=== PATIENT | female | born 1970 | race Caucasian/White ===

== ENCOUNTER → 2017-03-19 | Outpatient (CLI) | payer OTHER ==
--- NOTE | 2017-03-20 06:08 | PAP/PSG TECHNICIAN REPORT ---
[facility] Business Area Director Polysomnogram Report Study name: None Report date: 03/20/2017 Study date: 03/19/2017 Referring Physician: Leroy Bernal PA-C Name: REENA LEPE Interpreting Physician: Fidel Orosco D.O. Date of : 1970 Business Area Director: Nirmala Briscoe [facility]. Sex: Female Age: 46 StudyType: PSG Weight: 162 lbs Height: 46 years, Height 5' 6" BMI: 26.14 Medications: Ventolin 108 ( 90 Base) Patient History 46 yr. old female here for a diagnostic sleep study. Patients states she is now a light sleeper when she was younger she would sleep very sound. She also has bruxism, and even chipped a tooth during the night. She now wears a mouth piece. Patients [place] Sleepiness Scale Score is 5/24. Parameters Monitored NPSG: E1-M2, E2-M1, Fp1-M2, Fp2-M1, F3-M2, F4-M2, F4-M1, C3-M2, C4-M2, C4-M1, O1-M2, O2-M2, O2-M1, T3-M2, T4-M1, P3-M2, P4-M1, CHIN1, CHIN2, HR, EKG, Legs, PFLOW, SNOR, FLOW, CFLOW, Tidal Volume, THOR, ABDO, SpO2, PLTH, CPRESS, ETCO2 Wave, ETCO2, pH Sleep Architecture Sleep Stages Time at Lights Off 9:21:37 PM STAGES Time (min.) TST (%) Time at Lights On 6:00:07 AM Wake 72.5 -- Total Recording Time (TRT) 518.00 min. N1 23.0 5 Total Sleep Period (TSP) 507.5 min. N2 225.0 51 Total Sleep Time (TST) 445.5min. N3 64.5 14 Awake Time 72.5 min. REM 133.0 30 Wake after Sleep Onset 62.5 min. Sleep Efficiency (SE) 86 % Sleep Onset Latency (SULEMAN) 10.5 min. Number of Stage 1 Shifts None Awakenings 25 Stage Changes 91 Number of REM periods 6 REM 133.0 30 REM Latency 64.5 min. NREM 312.5 70 Body Position Analysis Supine Right Left Side Prone Vertical Total Sleep Time (min.) 230.6 82.3 139.3 221.58 0.0 0.4 Total Sleep Time (%) 50% 18% 31% 50 0% N/A% Total Sleep Time REM (min.) 99.5 0.0 33.5 None 0.0 0.0 Total Sleep Time NREM (min.) 124.4 82.3 105.8 None 0.0 0.0 Intermittent Wake (min.) 6.7 63.0 2.5 None 0.0 0.4 Total Sleep Period (%) 45% None None None None None Arousals Myoclonus (PLM) * Events Count Index Events Count Index Spontaneous 15 2 Events Awake (PLMW) 53 43.9 Respiratory 0 0.0 Events Asleep w/ Arousal (PLMA) 21 2.8 PLM 20 3 Events Asleep w/o Arousal (PLMS) 54 7.3 Snoring 7 1 Total Asleep 75 10.1 Total 42 6 Total 128 15 Respiratory Analysis * CA OA MA CH H RERA Total Count 1 0 0 0 0 0 1 Index 0.1 0.0 0.0 0 0.0 0 0.1 Mean Duration 11.2 0.0 0.0 0.00 0.0 0.0 11.2 Longest Duration 11.2 0.0 0.0 0.00 0.0 0.0 11.2 Respiratory Event Summary Total Supine ~Supine Right Left Prone REM NREM Apneas Count 1 1 0 0 0 N/A 1 0 Index 0.1 0 0 0.0 0.0 N/A 0 0 Hypopneas (4% Desat) Count 0 0 0 0 0 N/A 0 0 Index 0.0 0.0 0 0.0 0.0 N/A 0.0 0.0 Apneas & All Hypopneas Count 1 1 0 0 0 N/A 1 0 Index 0.1 0 0 0 0 N/A 0.5 0.0 Respiratory Events (Mental Health Program Specialist+All Hyp+RERA) Count 1 1 0 0 0 N/A 1 0 Index 0.1 0 0 0.0 0.0 N/A 0.5 0.0 Respiratory Related Arousal Count 0 1 0 0 0 N/A 0 0 Index 0.0 0 0 0 0 N/A 0 0 Snoring Analysis Supine Right Left Prone REM NREM Total Snore duration 1.6 min Snores count 7 11 36 N/A 25 29 54 Snore mean duration 1.8 Sec Snores index 2 8 16 N/A 11.3 5.6 7.3 TST with snoring (%) 0.4% Desaturation Event Summary: Minimum %SpO2 Event Count Mean/Min/Max Duration(sec.) Desaturation Index % Time In Bed > 90 8 28.2 / 8.3 / 58.8 0.9 99.9 86 - 90 0 N/A 0.0 0.0 81 - 85 0 N/A 0.0 0.0 76 - 80 0 N/A 0.0 0.0 71 - 75 0 N/A 0.0 0.0 66 - 70 0 N/A 0.0 0.0 61 - 65 0 N/A 0.0 0.0 56 - 60 0 N/A 0.0 0.0 51 - 55 0 N/A 0.0 0.0 < 50 0 N/A 0.0 0.0 Total REM NREM Awake <50% 0.0 min. 0.0 min. 0.0 min. 0.0 min. 51 - 60% 0.0 min. 0.0 min. 0.0 min. 0.0 min. 61 - 70% 0.0 min. 0.0 min. 0.0 min. 0.0 min. 71 - 80% 0.3 min. 0.0 min. 0.0 min. 0.3 min. 81 - 90% 0.0 min. 0.0 min. 0.0 min. 0.0 min. 91 - 100% 510.6 min. 133.0 min. 312.5 min. 65.1 min. Average 95 95 95 95 Minimum SpO2 74 91 91 74 Desaturation Event Index 0.9 0.5 0.6 3.3 # Desat. Events below 89% 1 N/A N/A 1 Time(%) with Saturation below 89% 0.1 0.0 0.0 0.1 Time(min.) with Saturation below 89% 0.3 0.0 0.0 0.3 Time (mins) REM (mins) NREM (mins) % of TST SpO2 Below 90% N/A N/A NN/A 0.0 SpO2 Below 88% 0 0 0 0 Heart Rate Analysis Min (bpm) Max (bpm) Average (bpm) Awake 62 110 76 NREM 63 95 77 REM 68 101 84 Overall 63 101 79 Supplemental O2 Values Minimum O2 level: None Value Start Time End Time Business Area Director Comments MS. Lepe slept in the right, left, and supine positions. No cardiac arrhythmia. PLMs noted. No bruxism noted. Snoring was noted and scored as a 1 on a scale of 0 through 5. (0=no snoring, 5=snoring loud enough to be heard through a closed door or down the cote way) MS. Lepe awoke to use the restroom once during the night. MS. Lepe stated, that was a normal night. The final report will be interpreted and signed by a sleep physician. The completed physician report will then be placed in the patient medical record. Therapy (cm H2O) 0 TIB (min.) 518.0 TST (min.) 445.5 Sleep Onset (min.) 10.5 REM Onset From Sleep (min.) 64.5 Sleep Efficiency % 86 Wakefulness (%) 14 Wakefulness (min.) 72.5 NREM 1 (%) 5 NREM 1 (min.) 23.0 NREM 2 (%) 51 NREM 2 (min.) 225.0 NREM 3 (%) 14 NREM 3 (min.) 64.5 REM (%) 30 REM (min.) 133.0 # Arousals 42 Arousal Index 6 # Snore 54 Snore Index 7.3 AHI 0.1 AHI Supine 0 AHI Non-Supine 0 NREM AHI 0.0 REM AHI 0.5 RDI 0.1 # Obstructive Apnea 0 # Central Apnea 1 # Mixed Apnea 0 # Hypopneas 0 RERAs 0 Total Respiratory Events 2 Time Below SpO2 89% (min.) 0.0 Mean NREM SpO2 (%) 95 Mean REM SpO2 (%) 95 Mean Sleep SpO2 (%) 95 Min NREM SpO2 (%) 91 Min REM SpO2 (%) 91 Position Supine (min.) 230.6 Position Non-supine (min.) 221.6 LM Index Sleep 10.1 LM Index NREM 9.4 LM Index REM 11.7 Mean Heart Rate (bpm) 79 Min Heart Rate (bpm) 63
--- NOTE | 2017-03-22 08:26 | Sleep Study ---
Sleep Study Report Date of Service: 03/19/2017 Sleep Study Report Clinical data: The patient is a 46-year-old female who was referred for a diagnostic sleep study. She has a history of bruxism. She has had disturbed nocturnal sleep. She has a history of excessive daytime somnolence. Her [place] score was 5 out of a possible 24. The patient's BMI is 26.14. Sleep architecture: The total sleep period was 507.5 minutes. The total sleep time was 445.5 minutes. Sleep efficiency was mildly reduced at 86 percent. The sleep latency was normal at 10.5 minutes. Wake after sleep onset was mildly elevated at 62.5 minutes. The REM latency was 64.5 minutes which is normal. There were 5 REM periods. Sleep consisted of stage N1 5 percent, stage N2 51 percent, stage N3 14 percent, and stage REM 30 percent. Arousal data: The patient had a total of 42 arousals including 15 spontaneous arousals, 20 PLM arousals, and 7 snoring arousals. The arousal index was 6. PLM data: The patient had 75 periodic limb movements of sleep for an index of 10.1. There were 21 arousals related to leg movements for a PLM arousal index of 2.8. EKG: The underlying cardiac rhythm was normal sinus. The cardiac rates ranged from 63 to 101 beats per minute. The average heart rate was 79 beats per minute. Respiratory data: The patient had a total of only 1 respiratory event, a central apnea. The apnea was 11.2 seconds in length. The apnea-hypopnea index was normal at 0.1 events per hour. Oximetry data: The average saturation for the night was 95 percent. There was a recorded saturation as low as 74 percent but this was clearly technical. The true minimum saturation was 90 percent. Pediatric Dental Assistant comments: The patient slept on the right, left, and supine positions. No cardiac arrhythmia. PLMS noted. No bruxism noted. Snoring was noted and scored as a 1 on a scale of 0 through 5. Impressions: 1. No evidence of obstructive sleep apnea 2. Bruxism by history-none noted during this study 3. Disturbed nocturnal sleep and excessive daytime somnolence by history 4. Mild snoring Comments: The patient had overall a good night sleep. Her sleep efficiency was only mildly reduced. This was related to an episode of wake later in the night. Her sleep was quite well consolidated. She had a substantial amount of REM sleep. There were relatively few arousals. Oxygenation was normal. There was a relatively mild number of periodic limb movements that did not significantly disturbs her sleep. Recommendations: 1. The patient should follow up with Leroy Bernal PA-C who referred the patient. 2. The patient should be advised the appropriate principles of sleep hygiene including having a regular sleep-wake schedule and allowing approximately 7.5-8 hours of sleep time per night. Copies To 1: Fidel Orosco DO; Jay Jay Fierro M.D.; Leroy Bernal PA-C
== END | disposition home or self-care (01) ==
LOC: C.NEUR 21:00
PROVIDERS: ATTEND Physician Assistant
DX: G47.19 Other hypersomnia (principal)

== ENCOUNTER 2017-08-07 09:05 | Observation (INO) | payer OTHER ==
[~2017-08-07] VITALS: Ht 167.6 cm; Wt 76.8 kg
[2017-08-07] MEDS ORDERED: VNTHFA/IN INH (09:43)
[2017-08-07] MEDS ORDERED: ALUMINUM/MAGNESIUM SUSP 30 ML UDC PO STA (09:47)
[2017-08-07] MEDS ORDERED: ALBUT/IPRATROP 3MG/0.5MG NEB 3 ML VIAL INH STA ×4 (09:47→15:17)
--- NOTE | 2017-08-07 09:58 | EMERGENCY ROOM VISIT NOTE ---
History Report prepared by Ingrid: Corinne Chan Under the Supervision of: Dr. Jelly Torres D.O. First contact with patient: 09:27 Chief Complaint: SHORTNESS OF BREATH Stated Complaint: TROUBLE BREATHING Nursing Triage Summary: Shortness of breath since the Jul. Seen at two different ERs and at PCPs office. Dx with laryngitis, given treatments but no improvement. History of Present Illness The patient is a 47 year old female who presents to the Emergency Room with complaints of constant shortness of breath beginning about 15 days ago. The patient went to [place] [facility] on July 23 for shortness of breath and was given a breathing treatment and sent home with 5 day steroid treatment. The patient followed up with her PCP on August 01 and was sent to [place] [facility] to have lab work, a CT and an x-ray done. From there, she was diagnosed with laryngitis and was sent home with a nebulizer and azithromycin. The patient then went to [facility] on August 03 and was sent home with another steroid. She reports a pressure on her central chest, an intermittent productive cough, right ear pressure, and a dry nose. Her chest pressure does not radiate or move. She reports the nebulizer and her Ventolin inhaler have not given her any relief. She states eating makes her chest pressure worse. The patient denies any history of reflux. She denies being on a steroid based inhaler. The patient has a history of asthma. The patient was never a smoker. Pt denies headache, change in vision, fevers, nausea, vomiting, diarrhea, pain with urination, swelling in legs, rashes, or sore throat, and melena. Source of History: patient Onset: 15 days ago Position: other (generalized) Quality: other (shortness of breath) Timing: constant Modifying Factors (Worsening): eating Associated Symptoms: + cough, + chest pain (pressure), + SOB, No sorethroat Review of Systems See HPI for pertinent positives & negatives. A total of 10 systems reviewed and were otherwise negative. Family History Patient reports no known family medical history. Social History Smoking Status: Never Smoker Smokeless Tobacco Use: No Marital Status: Housing Status: lives with family Current/Historical Medications Scheduled Albuterol Hfa (Ventolin Hfa), 2-4 PUFFS INH Q6H Allergies Coded Allergies: Bupropion (Unverified Allergy, Severe, FULL BODY RASH, 08/07/17) [place] (Unverified Allergy, Severe, SHORTNESS OF BREATH,SWELLING IN THROAT, 08/07/17) Penicillin V (Unverified Allergy, Severe, FULL BODY RASH, 08/07/17) Physical Exam Vital Signs Date Time Temp Pulse Resp B/P (MAP) Pulse Ox O2 Delivery O2 Flow Rate FiO2 08/07/17 16:27 130 20 122/81 93 Room Air 08/07/17 15:04 117 20 138/79 95 Room Air 08/07/17 13:11 125 18 139/81 94 Room Air 08/07/17 12:37 141 22 98 08/07/17 11:12 109 20 100 Room Air 08/07/17 10:11 88 18 96 Room Air 08/07/17 09:22 97 Room Air 08/07/17 09:11 97 Room Air 08/07/17 09:11 37.1 85 20 137/93 97 Room Air Physical Exam GENERAL: alert, well appearing, well nourished, no distress, non-toxic EYE EXAM: normal conjunctiva, PERRL and EOM's grossly intact OROPHARYNX: no exudate, no erythema, lips, buccal mucosa, and tongue normal and mucous membranes are moist NECK: supple, no nuchal rigidity, no adenopathy, non-tender LUNGS: Clear to auscultation. Normal chest wall mechanics HEART: no murmurs, S1 normal and S2 normal ABDOMEN: abdomen soft, non-tender, normo-active bowel sounds, no masses, no rebound or guarding. BACK: Back is symmetrical on inspection and there is no deformity, no midline tenderness, no CVA tenderness. SKIN: no rashes and no bruising UPPER EXTREMITIES: upper extremities are grossly normal. LOWER EXTREMITIES: No pitting edema. NEURO EXAM: Normal sensorium, cranial nerves II-XII grossly intact, normal speech, no gross weakness of arms, no gross weakness of legs. Medical Decision & Procedures ER Provider Diagnostic Interpretation: Radiology results have been interpreted by the radiologist and reviewed by me. CHEST ONE VIEW PORTABLE FINDINGS: The bones soft tissues and hemidiaphragms are normal. The cardiomediastinal silhouette is normal. The lungs are clear. The pulmonary vasculature is normal. IMPRESSION: Negative chest. The above report was generated using voice recognition software. It may contain grammatical, syntax or spelling errors. Electronically signed by: Jose Manuel Albert M.D. Laboratory Results Test 08/07/17 13:10 08/07/17 13:13 08/07/17 13:17 Bedside Troponin I < 0.030 ng/ml (0-0.045) Bedside Hemoglobin 13.9 g/dl (12.0-16.0) Bedside Hematocrit 41 % (37-47) Bedside Sodium 140 mEq/L (135-144) Bedside Potassium 3.1 mEq/L (3.3-5.0) Bedside Chloride 104 mEq/L (101-112) Bedside Total CO2 23 mEq/l (24-31) Bedside Blood Urea Nitrogen 5 mg/dl (7-18) Bedside Creatinine 0.7 mg/dl (0.6-1.3) Bedside Glucose (other) 129 mg/dl (70-99) Bedside Ionized Calcium (José Miguel) 1.14 mmol/l (1.12-1.32) Influenza Type A Antigen Neg for Influ A (NEG) Influenza Type B Antigen Neg for Influ B (NEG) Medications Administered Medications (Trade) Dose Ordered Sig/Gwen Route Start Time Stop Time Status Last Admin Dose Admin Albuterol/ Ipratropium (Duoneb) 3 ml NOW STAT INH 08/07/17 09:47 08/07/17 09:48 DC 08/07/17 09:56 3 ML Al Hydroxide/Mg Hydroxide (Maalox Susp) 15 ml NOW STAT PO 08/07/17 09:47 08/07/17 09:48 DC 08/07/17 09:56 15 ML Albuterol/ Ipratropium (Duoneb) 3 ml NOW STAT INH 08/07/17 10:51 08/07/17 10:52 DC 08/07/17 11:00 3 ML Guaifenesin (Mucinex Contr Rel Tab) 600 mg NOW STAT PO 08/07/17 10:51 08/07/17 10:52 DC 08/07/17 11:11 600 MG Dexamethasone (Decadron Conc Soln) 10 mg NOW STAT PO 08/07/17 10:57 08/07/17 10:58 DC 08/07/17 11:11 10 MG Albuterol/ Ipratropium (Duoneb) 3 ml NOW STAT INH 08/07/17 11:42 08/07/17 11:43 DC 08/07/17 11:47 3 ML Methylprednisolone Sodium Succinate (Solu-Medrol IV) 60 mg NOW STAT IV 08/07/17 15:16 08/07/17 15:18 DC 08/07/17 15:48 60 MG Albuterol/ Ipratropium (Duoneb) 3 ml NOW STAT INH 08/07/17 15:17 08/07/17 15:18 DC 08/07/17 15:49 3 ML Magnesium Sulfate (Magnesium Sulfate) 2 gm NOW STAT IV 08/07/17 15:34 08/07/17 15:35 DC 08/07/17 15:49 2 GM ECG Indication: SOB/dyspnea Rate (beats per minute): 101 Rhythm: sinus tachycardia Findings: no acute ischemic change, no ectopy, other (normal axis, normal intervals) ED Course 09: The patient was evaluated in room B11B. A complete history and physical exam was performed. 0947: Ordered Maalox Susp 15 ml PO, Duoneb 3 ml INH. 1010: Reviewed recent records from [facility]. Pt with negative labs including trop, CT angio chest negative for acute pathology and CT soft tissue neck negative for acute pathology. 1035: The patient's chest pressure is better but not gone. 1051: Ordered Guaifenesin 600 mg PO, Duoneb 3 ml INH. 1057: Ordered Dexamethasone 10 mg PO. 1136: The patient is feeling better with the second nebulizer treatment. 1142: Ordered Duoneb 3 ml INH. 1223: The patient feels much better. Will have the patient do an ambulatory pulse ox. Patient feels jittery from nebulizer. Her stats are fine but she is still a little tachycardic. 1258 The patient felt "funny" during ambulatory pulse ox. However, her stats did not drop. 1400: The patient is now eating and resting comfortably. 1437: The patient's symptoms have returned. 1517: I reviewed the patient's case with [place]. Azam [facility] will evaluate the patient for further management. 1534: Ordered Magnesium Sulfate 2 gm IV. Medical Decision Differential diagnosis: Etiologies such as infections, reactive airway disease, pneumonia, pneumothorax , COPD, CHF, cardiac ischemia, pulmonary embolism, musculoskeletal, gastrointestinal, as well as others were entertained. Pt well appearing here despite complaints. Records obtained from outside hospital which showed thorough evaluation within the last 6 days including labs and imaging. Discussed with pt initially treating sx for likely asthma exacerbation and avoiding repeating labs/imaging. She was agreeable with slowly with nebs and meds pt felt slightly improved. Not hypoxic during ambulation but had increased SOB and chest tightness returned. Sx did not jim with additional meds. Labs and imaging then ordered and still reassuring. Discussed with pt again, pt very concerned about persistence of sx despite negative evaluation and meds. Discussed dc home with close f/u vs evaluation by medicine for possible admission/observation and additional treatment. Pt stated she felt uncomfortable going home with these symptoms, requested admission. Case discussed with medicine. I feel sx most likely related to asthma. Doubt PE given recent negative CTA chest, doubt trop given two negative troponins within the last week despite ongoing sx. Doubt pneumonia given pt just finished azithromycin yesterday. Doubt bacteremia/ sepsis, doubt tamponade, perf, dissection, aneurysm, other vascular etiology, no hx of trauma. Medication Reconcilliation Current Medication List: was personally reviewed by me Blood Pressure Screening Patient's blood pressure: Elevated blood pressure Blood pressure disposition: Elevated BP felt to be situational Consults Time Called: 1512 Consulting Physician: Dr. Azam Arredondo Returned Call: [phone] I reviewed the patient's case with Dr. Azam Arredondo. He will evaluate the patient for further management. Impression Primary Impression: Bronchospasm Additional Impressions: Asthma exacerbation Chest pressure Scribe Attestation The scribe's documentation has been prepared under my direction and personally reviewed by me in its entirety. I confirm that the note above accurately reflects all work, treatment, procedures, and medical decision making performed by me. Departure Information Dispostion Being Evaluated By Hospitalist Referrals Jay Jay Fierro M.D. (PCP) Forms HOME CARE DOCUMENTATION FORM, IMPORTANT VISIT INFORMATION Patient Instructions My [facility] Problem Qualifiers Additional Impressions: Asthma exacerbation Asthma severity: mild Asthma persistence: unspecified Qualified Codes: J45.901 - Unspecified asthma with (acute) exacerbation
[2017-08-07] MEDS ORDERED: GUAIFENESIN 600 MG TABCR PO STA (10:51)
[2017-08-07] MEDS ORDERED: DEXAMETHASONE CONC 1 MG/ML 30 ML PO STA ×2 (10:51→10:57)
[2017-08-07 13:27] LABS: ISTAT CREATININE 0.7 mg/dl (0.6-1.3); ISTAT IONIZED CALCIUM 1.14 mmol/l (1.12-1.32); ISTAT POTASSIUM 3.1 mEq/L (3.3-5.0)
[2017-08-07 14:42] LABS: INFLUENZA B ANTIGEN Neg for Influ B (NEG)
--- NOTE | 2017-08-07 15:15 | DIAGNOSTIC IMAGING REPORT ---
CHEST ONE VIEW PORTABLE CLINICAL HISTORY: chest pressure, sob dyspnea COMPARISON STUDY: No previous studies for comparison. FINDINGS: The bones soft tissues and hemidiaphragms are normal. The cardiomediastinal silhouette is normal. The lungs are clear. The pulmonary vasculature is normal. IMPRESSION: Negative chest. The above report was generated using voice recognition software. It may contain grammatical, syntax or spelling errors. Electronically signed by: Jose Manuel Albert M.D. 08/07/2017 3:13 PM Dictated Date/Time: 08/07/2017 3:13 PM
[2017-08-07] MEDS ORDERED: METHYLPREDNISOLONE 125 MG VIAL IV STA (15:16)
[2017-08-07] MEDS ORDERED: MAGNESIUM SULFATE 1GM / D5W 1 GM BAG IV STA (15:34)
[2017-08-07] MEDS ORDERED: ACETAMINOPHEN 325 MG TAB PO PRN (16:30)
[2017-08-07] MEDS ORDERED: ONDANSETRON INJ 2 MG/ML 2 ML VIAL IV PRN (16:30)
[2017-08-07] MEDS ORDERED: ALUMINUM/MAGNESIUM/SIMETH (MAALOX MAX) 30 ML UDC PO PRN (16:30)
[2017-08-07] MEDS ORDERED: POLYETHYLENE (MIRALAX) 17 GM PACK PO PRN (16:30)
--- NOTE | 2017-08-07 16:53 | History and Physical ---
History & Physical Date & Time of Service: Aug 07, 2017 at 16:36 Chief Complaint: Trouble Breathing Primary Care Physician: No Doctor, Assigned History of Present Illness Source: patient, clinic records, hospital records Patient is a pleasant 47 y/o female, with PMHx of asthma and insomnia, who presented to the ED with complaints of SOB and chest tightness x1 month. Patient was seen at [place] [facility] on 07/23 for SOB- she was treated with nebulizers and discharged home on a Prednisone taper. She follow-up w/ PCP on and was sent to [facility] ED for lab work, x-ray, and CT- she was diagnosed with laryngitis and discharged to home with nebulizer and Azithromycin. She then went to [facility] on 08/03 for continued complaints and was discharged to home on another Prednisone taper. She notes her chest pressure seems to worsen with eating. Denies any radiating symptoms. Denies h/o acid reflux. She follows w/ Leroy Bernal for pulmonary. She had a sleep study in March 2017 and PFTs in December of 2016, which were unremarkable. She admits to a periodic cough w/ clear/white sputum production and at times is blood tinged. She also notes nasal congestion. Patient denies any fever, chills , sweats, lightheadedness, dizziness, vision changes, CP, palpitations, edema, wheezing, abdominal pain, nausea, vomiting, diarrhea, urinary symptoms, melena, numbness/tingling, weakness, muscle/joint pain, anxiety/depression, active bleeding, or new skin discoloration/changes. Past Medical/Surgical History Past Medical History: Asthma Insomnia Family History Patient reports no known family medical history. Social History Smoking Status: Never Smoker Smokeless Tobacco Use: No Marital Status: Housing status: lives alone Allergies Coded Allergies: Bupropion (Unverified Allergy, Severe, FULL BODY RASH, 08/07/17) Flint (Unverified Allergy, Severe, SHORTNESS OF BREATH,SWELLING IN THROAT, 08/07/17) Penicillin V (Unverified Allergy, Severe, FULL BODY RASH, 08/07/17) Home Medications Scheduled Albuterol Hfa (Ventolin Hfa), 2-4 PUFFS INH Q6H Physical Exam Vital Signs Date Time Temp Pulse Resp B/P (MAP) Pulse Ox O2 Delivery O2 Flow Rate FiO2 08/07/17 16:27 130 20 122/81 93 Room Air 08/07/17 15:04 117 20 138/79 95 Room Air 08/07/17 13:11 125 18 139/81 94 Room Air 08/07/17 12:37 141 22 98 08/07/17 11:12 109 20 100 Room Air 08/07/17 10:11 88 18 96 Room Air 08/07/17 09:22 97 Room Air 08/07/17 09:11 97 Room Air 08/07/17 09:11 37.1 85 20 137/93 97 Room Air General Appearance: no apparent distress Head: normocephalic, atraumatic Eyes: normal inspection, PERRL ENT: hearing grossly normal Neck: supple Respiratory/Chest: lungs clear, no respiratory distress, no accessory muscle use Cardiovascular: + tachycardia (regular rhythm ) Abdomen/GI: normal bowel sounds, non tender, soft Back: normal inspection Extremities/Musculoskelatal: no calf tenderness, no pedal edema Neurologic/Psych: alert, normal mood/affect, oriented x 3 Skin: normal color, warm/dry, no rash Diagnostics Laboratory Results Results Past 24 Hours Test 08/07/17 13:10 08/07/17 13:13 08/07/17 13:17 Range/Units Bedside Troponin I < 0.030 0-0.045 ng/ml Bedside Hemoglobin 13.9 12.0-16.0 g/dl Bedside Hematocrit 41 37-47 % Bedside Sodium 140 135-144 mEq/L Bedside Potassium 3.1 3.3-5.0 mEq/L Bedside Chloride 104 101-112 mEq/L Bedside Total CO2 23 24-31 mEq/l Anion Gap 17.0 16-25 mmol/L Bedside Blood Urea Nitrogen 5 7-18 mg/dl Bedside Creatinine 0.7 0.6-1.3 mg/dl Bedside Glucose (other) 129 70-99 mg/dl Bedside Ionized Calcium (José Miguel) 1.14 1.12-1.32 mmol/l Influenza Type A Antigen Neg for Influ A NEG Influenza Type B Antigen Neg for Influ B NEG Diagnostic Radiology CHEST ONE VIEW PORTABLE CLINICAL HISTORY: chest pressure, sob dyspnea COMPARISON STUDY: No previous studies for comparison. FINDINGS: The bones soft tissues and hemidiaphragms are normal. The cardiomediastinal silhouette is normal. The lungs are clear. The pulmonary vasculature is normal. IMPRESSION: Negative chest. The above report was generated using voice recognition software. It may contain grammatical, syntax or spelling errors. Electronically signed by: Jose Manuel Albert M.D. 08/07/2017 3:13 PM Dictated Date/Time: 08/07/2017 3:13 PM The status of this report is Signed. Draft = Not yet reviewed or approved by Radiologist. Signed = Reviewed and approved by Radiologist. EKG REENA HUDSON ID:[id number] 07-AUG-2017 10:08:45 [facility] Sinus tachycardia Otherwise normal ECG No previous ECGs available Confirmed by ERUM HERNANDEZ ([id number]) on 08/07/2017 2:26:27 PM 25mm/s 10mm/mV 150Hz 8.0 SP2 12SL 241 HD KEN: 12 Referred by: Referred Self Confirmed By: ERUM Moore. rate 101 BPM AK interval 130 ms QRS duration 76 ms QT/QTc 370/479 ms P-R-T axes 53 28 22 1970 (47 yr) Female Room:[facility] Loc:15 Pump Attendant:HORACIO CAN Test ind: Impression Assessment and Plan Patient is a pleasant 47 y/o female, with PMHx of asthma and insomnia, who presented to the ED with complaints of SOB and chest tightness x1 month. Mild asthma exacerbation: - Admit to med/surg - Cardiac negative x1 and EKG unremarkable for acute ischemic changes - O2 protocol- no recorded hypoxia, currently on RA w/ O2 sats 95% - IV SoluMedrol 60 mg x1 in ED; Prednisone 40 mg daily starting tomorrow - Treated w/ IV Mag 1gm x1, DuoNebs, Mucinex in ED; Continue DuoNebs KENDRA and PRN and Mucinex 600 mg BID - Sputum culture pending - Influenza negative - CXR unremarkable for acute findings - Will consult pulmonary due to multiple ED visits and continued complaints Mild hypokalemia at 3.1: Replaced w/ 40 mEq KCL x1, follow PRP and replace PRN GI prophylaxis: Protonix 40 mg daily DVT prophylaxis: Lovenox SQ daily Code Status: LEVEL I, FULL Dispo: From home- lives in [place]- no discharge needs anticipated I personally interviewed and examined the patient. I agree with history of present illness and physical exam mentioned above, I also performed my own history taking and examination. Past medical history and review of system has been obtained by myself I reviewed all pertinent labs and studies Reviewed current medications I discussed and formulated of the assessment and plan mentioned above. Please refer to the Summary mentioned below. Agree With Miss. Gannon's plan 47 years old female presented to the ED with gradual progressive shortness of breath 1 month General Appearance: not in acute distress Eyes: normal Sclerae, extraocular muscle intact ENT: hearing grossly normal Neck: supple Respiratory/Chest: Normal air entry bilateral ,no severe respiratory distress, no accessory muscle use Cardiovascular: regular rate, rhythm, no murmur Abdomen: non tender, soft, no masses Extremities: no edema Neurologic/Psychiatric: Awake alert oriented times place and person moves all extremities sensation intact cranial nerves II-12 appear to be intact Skin: normal color, warm/dry, no rash Assessment Asthma exacerbation Plan Bronchodilators/steroids Negative influenza screen Order sputum culture Level of Care Med/Surg Resuscitation Status FULL RESUSCITATION VTE Prophylaxis Given or contraindicated: Enoxaparin (Lovenox)SQ, T.E.D. Stockings, SCD's
[2017-08-07 17:20] VITALS: Ht 167.6 cm; Wt 76.8 kg
[2017-08-07 18:20] VITALS: BP 131/83; PULSE 119; TEMP 36.9; O2SAT 97
[2017-08-07] MEDS: LEVALBUTEROL 1.25MG/3ML NEB INH SCH (18:58)
[2017-08-07 19:00] VITALS: PULSE 111; O2SAT 96
[2017-08-07] MEDS ORDERED: POTASSIUM CHLORIDE 20 MEQ TABCR PO ONE (19:00)
[2017-08-07] MEDS ORDERED: IV FLUIDS COMPLETED PRN (19:15)
[2017-08-07] MEDS: GUAIFENESIN 600 MG TABCR PO SCH (19:59)
[2017-08-07] MEDS ORDERED: NURSING DECISION MEDICATION ORDER SCH (20:45)
[2017-08-07] MEDS ORDERED: SODIUM CHLORIDE 0.65% NA SOLN 45 ML (OCEAN) PRN (20:45)
[2017-08-07] MEDS: ENOXAPARIN 40 MG/0.4 ML SYR SQ SCH (20:56)
[2017-08-07] MEDS ORDERED: PNEUMOCOCCAL ADMINISTRATION CHARGE ONE (21:30)
[2017-08-07] MEDS ORDERED: PNEUMOCOCCAL POLYSACCHARIDES 25 MCG/0.5 ML VIAL/SYR IM. ONE (21:30)
[2017-08-07 23:20] VITALS: BP 109/67; PULSE 93; TEMP 36.6; O2SAT 97
[2017-08-08] VITALS (7 sets, daily range): BP systolic 114–128; BP diastolic 72–79; PULSE 84–119; TEMP 36.6–36.8; O2SAT 94–98
[2017-08-08] MEDS: LEVALBUTEROL 1.25MG/3ML NEB INH SCH ×4 (02:08→19:02)
[2017-08-08 07:19] LABS: HEMATOCRIT 42.2 % (37-47); HEMOGLOBIN 14.6 g/dL (12.0-16.0); MEAN CELL VOLUME 84.6 fL (80-100); MEAN CORPUSCULAR HEMOGLOBIN 29.3 pg (25-34); MEAN CORPUSCULAR HGB CONC 34.6 g/dl (32-36); MEAN PLATELET VOLUME 10.8 fL (7.4-10.4); PLATELET COUNT 260 K/uL (130-400); RED CELL DISTRIBUTION WIDTH CV 13.5 % (11.5-14.5); RED CELL DISTRIBUTION WIDTH SD 41.5 fL (36.4-46.3); WHITE BLOOD COUNT 16.08 K/uL (4.8-10.8)
[2017-08-08 07:51] LABS: CALCIUM 9.1 mg/dl (8.5-10.1); CREATININE 0.89 mg/dl (0.60-1.20); POTASSIUM 4.3 mmol/L (3.5-5.1)
[2017-08-08] MEDS: PANTOprazole SOD 40 MG TAB PO SCH (07:58)
[2017-08-08] MEDS: GUAIFENESIN 600 MG TABCR PO SCH ×2 (07:58→20:25)
[2017-08-08 11:46] LABS: INFLUENZA A PCR Neg for Influ A (NEG); INFLUENZA B PCR Neg for Influ B (NEG)
--- NOTE | 2017-08-08 11:56 | Family Medicine Progress Note ---
Progress Note Date of Service Aug 08, 2017. Subjective Pt evaluation today including: conversation w/ patient, conversation w/ family , physical exam, chart review, lab review, review of studies, review of inpatient medication list Pain: denies PO Intake: adequate Voiding: no voiding problems Patient reports residual Chest tightness, dyspnea, and both have improves. She reports cough, but denies wheezing,. Constitutional: No fever, No chills, No weakness Respiratory: + shortness of breath (imprvoed), No cough Cardiovascular: No chest pain, No palpitations Abdomen: No pain, No nausea, No vomiting Musculoskeletal: No calf pain Skin: No rash, No itch Medications Current Inpatient Medications Medications (Trade) Dose Ordered Sig/Gwen Route Start Time Stop Time Status Last Admin Dose Admin Enoxaparin Sodium (Lovenox Inj) 40 mg DAILY@2000 SQ 08/07/17 20:00 09/06/17 19:59 08/08/17 20:17 40 MG Acetaminophen (Tylenol Tab) 650 mg Q4H PRN PO 08/07/17 16:30 09/06/17 16:29 Al Hydrox/Mg Hydrox/Simethicone (Maalox Max Susp) 15 ml Q4H PRN PO 08/07/17 16:30 09/06/17 16:29 Magnesium Hydroxide (Milk Of Magnesia Susp) 30 ml Q6H PRN PO 08/07/17 16:30 09/06/17 16:29 Polyethylene (Miralax Powder Packet) 17 gm DAILY PRN PO 08/07/17 16:30 09/06/17 16:29 Ondansetron HCl (Zofran Inj) 4 mg Q6H PRN IV 08/07/17 16:30 09/06/17 16:29 Levalbuterol (Xopenex 1.25MG/ 3ML Neb) 1.25 mg Q6R INH 08/07/17 21:00 09/06/17 20:59 08/09/17 02:22 1.25 MG Guaifenesin (Mucinex Contr Rel Tab) 600 mg Q12 PO 08/07/17 21:00 09/06/17 20:59 08/08/17 20:25 600 MG Pantoprazole Sodium (Protonix Tab) 40 mg QAM PO 08/08/17 08:00 08/12/17 08:59 08/08/17 07:58 40 MG Prednisone (PredniSONE TAB) 40 mg QAM PO 08/08/17 08:00 09/07/17 08:59 08/08/17 07:58 40 MG Miscellaneous (Iv Fluids Completed) 1 ea PRN PRN N/A 08/07/17 19:15 08/07/18 19:14 Sodium Chloride ([place] Nasal [place]) 1 sprays PRN PRN NA 08/07/17 20:45 09/06/17 20:44 Salmeterol Xinafoate/ Fluticasone (Advair Diskus 250/50 Inh) 1 puff BID INH 08/08/17 20:00 09/07/17 19:59 08/08/17 20:15 1 PUFF Montelukast Sodium (Singulair Tab) 10 mg HS PO 08/08/17 22:00 09/07/17 21:59 08/08/17 20:25 10 MG Objective Vital Signs Date Time Temp Pulse Resp B/P (MAP) Pulse Ox O2 Delivery O2 Flow Rate FiO2 08/08/17 08:15 Room Air 08/08/17 08:01 36.8 84 16 128/79 (95) 95 Room Air 08/08/17 07:12 85 16 96 Room Air 08/08/17 00:10 Room Air 08/07/17 23:20 36.6 93 18 109/67 (81) 97 Room Air 08/07/17 19:00 111 16 96 Room Air 08/07/17 18:20 36.9 119 18 131/83 (99) 97 Room Air 08/07/17 18:01 124 20 120/79 96 Room Air 08/07/17 17:20 Room Air 08/07/17 17:00 124 20 127/87 96 08/07/17 16:27 130 20 122/81 93 Room Air 08/07/17 15:04 117 20 138/79 95 Room Air 08/07/17 13:11 125 18 139/81 94 Room Air 08/07/17 12:37 141 22 98 Physical Exam Notes: GENERAL: alert, well appearing, well nourished, no distress, non-toxic EYE EXAM: normal conjunctiva, PERRL and EOM's grossly intact OROPHARYNX: bilateral tonsillar enlargement no exudate, no erythema, lips, buccal mucosa, and tongue normal and mucous membranes are moist NECK: supple, no nuchal rigidity, no adenopathy, non-tender LUNGS: Clear to auscultation. Normal chest wall mechanics HEART: no murmurs, S1 normal and S2 normal ABDOMEN: abdomen soft, non-tender, normo-active bowel sounds, no masses, no rebound or guarding. SKIN: no rashes and no bruising LOWER EXTREMITIES: No pitting edema. NEURO EXAM: Normal sensorium, cranial nerves II-XII grossly intact, normal speech, Laboratory Results Results Past 24 Hours Test 08/08/17 06:38 08/08/17 07:34 08/09/17 04:44 Range/Units White Blood Count 16.08 4.8-10.8 K/uL Red Blood Count 4.99 4.2-5.4 M/uL Hemoglobin 14.6 12.0-16.0 g/dL Hematocrit 42.2 37-47 % Mean Corpuscular Volume 84.6 80-100 fL Mean Corpuscular Hemoglobin 29.3 25-34 pg Mean Corpuscular Hemoglobin Concent 34.6 32-36 g/dl RDW Standard Deviation 41.5 36.4-46.3 fL RDW Coefficient of Variation 13.5 11.5-14.5 % Platelet Count 260 130-400 K/uL Mean Platelet Volume 10.8 7.4-10.4 fL Sodium Level 135 136-145 mmol/L Potassium Level 4.3 3.5-5.1 mmol/L Chloride Level 107 98-107 mmol/L Carbon Dioxide Level 21 21-32 mmol/L Anion Gap 8.0 3-11 mmol/L Blood Urea Nitrogen 14 7-18 mg/dl Creatinine 0.89 0.60-1.20 mg/dl Est Creatinine Clear Calc Drug Dose 81.8 ml/min Estimated GFR () 89.5 Estimated GFR (Non- 77.2 BUN/Creatinine Ratio 15.8 10-20 Random Glucose 136 70-99 mg/dl Calcium Level 9.1 8.5-10.1 mg/dl Procalcitonin < 0.05 0-0.5 ng/ml Assessment and Plan 47 yo F w/ h/o Asthma with multiple recent ED visits for Asthma exacerbation currently on Albuterol INH only at home presenting with SOB cough, secondary to Acute Asthma Exacerbation SOB, Cough * likely secondary to Asthma exacerbation given recent similar hospital vists and identified symptoms * Acute Asthma exacerbation * likely exacerbated in setting of URI vs. Bronchitis * previously only on Albuterol INH at home except for a sample of Breo she finished months ago * Continue Xopenex * Appreciate Pulmonology , Started Singulair, Advair * will need controller medication ( BReo) on d/c Leukocytosis * likely secondary to steroid demargination given prednisone use. * Conit to follow CBC GERD * Continue Protonix DVT Prophylaxis * Lovenox Disposition: Home FULL code Resident Physician Supervision Note: I interviewed and examined the patient. Discussed with Dr. Busch and agree with findings and plan as documented in the note. Any exceptions or clarifications are listed here: None Documented By: Seven Mcdonnell breathing better. wasn't on any maintenance medications between treatments for acute exacerbations vitals noted nad breathing unlabored asthma exac - improving on steroids. appears that she simply requires maintenance treatment - agree w management as above. likely home tomorrow Discharge planning: home Resident Tracking Resident Involvement: Resident Care Provided Care Provided: Adult Hospital Medicine
--- NOTE | 2017-08-08 14:19 | CONSULTATION REPORT ---
DATE OF CONSULTATION: 08/08/2017 DATE OF CONSULTATION: 08/08/2017 REASON FOR CONSULTATION: Asthma exacerbation. HISTORY OF PRESENT ILLNESS: The patient is a 47-year-old female who presented to [facility] on 08/07/2017 due to increased shortness of breath. The patient does carry a past medical history of asthma and insomnia. According to the note, the patient has been having ongoing difficulty with her breathing for approximately a month. She states that it seemed to start right or around July 21 or with relatively sudden onset of chest heaviness and tightness. She states that she felt like she just could not get air in. She had no significant chest pain. No chest pressure. She has had difficulty moving air. She states that she did go to [place] [facility] on 07/23/2017 for the shortness of breath. She had a chest x-ray and was treated with nebulizers and discharged home on a prednisone taper. She then subsequently saw her primary care physician on August 01 and was sent to [place] for labwork and x-ray. She also had a CT angiogram of the chest done as well as a CT of the neck and nothing was discovered. With this, she was discharged to home with a nebulizer as well as azithromycin and continued on prednisone. She then subsequently presented to [place] [facility] on 08/03/2017 for continuing difficulty with her breathing and unfortunately was discharged home on another prednisone taper. Unfortunately, through all this she has not had any improvement of her symptoms. She states that her chest is a little bit tight, has a pressure sensation, but she has no chest pain. She states that her symptoms do seem to worsen a little bit with eating, although she denies any dysphagia or difficulty with food sticking or going down wrong. She has not had any significant coughing. When she does cough she gets a little bit of clear mucus up. She has not noted any wheezing. She has not had any fever or chills associated with this. No night sweats, no weight changes. She has not had any headache, lightheadedness or dizziness. She has not really had any sinus symptoms. She denies any cardiac symptoms. She denies any GI symptoms. No nausea or vomiting, no diarrhea. She states that her bowels have not moved for over a day now, which is unusual for her. She states she is voiding well and is voiding about every 2-3 hours. She denies any numbness, tingling or weakness in her extremities. No joint aches or pains. She continues to have difficulty with sleeping. She states that she wakes up about every hour and does not get rest. She has an ongoing issue with insomnia as noted earlier. The patient had actually been seen in the office on the outpatient setting by myself initially in December of this year. She did have spirometry done at that time which showed a forced vital capacity of 3.41, which was 89% predicted and FEV1 of 2.69, which was 88% predicted. An FEV1 and FVC ratio of 78.7% which is 97% predicted. She also had a chest x-ray prior to that visit which was unremarkable. Because of her persistent insomnia she did have a sleep study done which was interpreted by Dr. Orosco which showed no evidence of obstructive sleep apnea. It did show bruxism just by history. There is none evaluated during the sleep study, but did show mild snoring. The patient was started on Breo which at the time seemed to be controlling her symptoms fairly well, although she did run out of it. She has not been using it recently. When I saw her in March her breathing had been doing well at that time. As stated unfortunate she did run out of Breo and has not been using it recently. The patient reports that since she has been in the hospital yesterday that her breathing has eased up some. She does not feel as tight in her chest. She feels like she can breathe a little bit easier. She has noticed that at times her voice is okay but at times it sounds very high pitched. She states that this sort of comes and goes at random. She states there is no pattern to it. She did have influenza A and B which was negative. She had a chest x-ray on admission which was negative. She has been receiving nebulizer and Solu-Medrol. PAST MEDICAL HISTORY: Positive for asthma, insomnia, ADHD and depression. FAMILY HISTORY: Positive for cancer, diabetes mellitus, coronary artery disease, seizure disorder and stroke. PAST SURGICAL HISTORY: Negative. SOCIAL HISTORY: The patient is a lifelong nonsmoker, nondrinker. She did grow up in a house where her parents smoked continuously. ALLERGIES: THE PATIENT IS ALLERGIC TO BUPROPION, LITHIUM AND PENICILLIN. CURRENTLY HOME MEDICATIONS: Albuterol, nothing else. REVIEW OF SYSTEMS: As above. PHYSICAL EXAMINATION: GENERAL: The patient is a 47-year-old female sitting in bedside getting ready to eat when I examined her in no respiratory distress, no acute distress. She is able to complete sentences without difficulty. There was some variation in his voice. VITAL SIGNS: Temp 36.8, pulse 84, respirations 16, blood pressure is 128/79, pulse ox 95% on room air. HEAD, EYES, EARS, NOSE, AND THROAT: Normocephalic, atraumatic. Pupils equal, round, reactive to light and accommodation. Extraocular movements are intact. [place], moist gingival and buccal mucosa. NECK: Supple. There is no mass. No adenopathy. No bruit. CHEST: She has good air movement throughout. No appreciated wheeze at this time. No rale or rhonchi. CARDIOVASCULAR: Regular rate and rhythm. There are no murmurs, gallops or rubs. ABDOMEN: Soft, nontender. No guarding, rigidity or organomegaly. EXTREMITIES: No erythema, no edema. No cyanosis or clubbing noted. NEUROLOGIC: Cranial nerves II-XII are intact. No focal deficit noted. LABORATORY DATA: Shows white count today 16,000, H&H 14.6 and 42.2, platelet count 260,000. INR 1.0. Procalcitonin 0.05. Troponin 0.03, BUN 14, creatinine 0.89. Influenza A and B are negative. Sputum culture pending. Chest x-ray is unremarkable. IMPRESSION: This is a 47-year-old female who has known history of asthma who has been having a mild exacerbation, does not appear status asthmaticus at this time. At this point, I agree with the Solu-Medrol and prednisone dosing. I think that we need to continue with this. I also agree with the pulmonary toilet in the form of DuoNeb q. 4 hours routinely and q. 2-3 hours p.r.n. I would like to add in Singulair as this may help if there is an allergy component. I would also like for her to restart Breo as it seems like she has not been on this recently and her symptoms did seem to exacerbate. I did have a long discussion with the patient about the potential for allergies influencing her asthma and I think that once the patient is stabilized and after discharge we can get her set up with an relay tester helper to evaluate further as well. At this point, I do think that we need to do any further imaging currently. Will focus on pulmonary toilet and the Solu-Medrol. I don't feel that any antibiotic is needed currently as well. Thank you for the consultation on this patient.
[2017-08-08] MEDS: FLUTICASONE/SALMETEROL 250/50 (ADVAIR) 14 PUFF/1 INHALER INH SCH (20:15)
[2017-08-08] MEDS: ENOXAPARIN 40 MG/0.4 ML SYR SQ SCH (20:17)
[2017-08-08] MEDS: MONTELUKAST SOD 10 MG TAB PO SCH (20:25)
[2017-08-09] VITALS (9 sets, daily range): BP systolic 111–142; BP diastolic 74–83; PULSE 73–102; TEMP 36.4–36.7; O2SAT 94–98
[2017-08-09] MEDS: LEVALBUTEROL 1.25MG/3ML NEB INH SCH ×2 (02:22→07:19)
[2017-08-09 06:36] LABS: HEMATOCRIT 38.8 % (37-47); HEMOGLOBIN 13.2 g/dL (12.0-16.0); MEAN CELL VOLUME 85.7 fL (80-100); MEAN CORPUSCULAR HEMOGLOBIN 29.1 pg (25-34); MEAN PLATELET VOLUME 10.6 fL (7.4-10.4); PLATELET COUNT 233 K/uL (130-400); RED CELL DISTRIBUTION WIDTH CV 13.8 % (11.5-14.5); RED CELL DISTRIBUTION WIDTH SD 43.3 fL (36.4-46.3); WHITE BLOOD COUNT 21.18 K/uL (4.8-10.8)
[2017-08-09 07:01] LABS: CALCIUM 8.7 mg/dl (8.5-10.1); CREATININE 0.84 mg/dl (0.60-1.20); POTASSIUM 3.8 mmol/L (3.5-5.1)
[2017-08-09] MEDS: FLUTICASONE/SALMETEROL 250/50 (ADVAIR) 14 PUFF/1 INHALER INH SCH ×2 (07:41→20:01)
[2017-08-09] MEDS: GUAIFENESIN 600 MG TABCR PO SCH ×2 (07:41→20:02)
[2017-08-09] MEDS: PANTOprazole SOD 40 MG TAB PO SCH (07:41)
[2017-08-09] MEDS: MAGNESIUM HYDROXIDE SUSP 30 ML UDC PO PRN ×2 (08:55→18:42)
--- NOTE | 2017-08-09 10:38 | PULMONARY PROGRESS NOTE ---
DATE: 08/09/2017 TIME: 10:15 a.m. SUBJECTIVE: The patient states that she walked this morning. She felt sort of quivering all through. She therefore stopped her walk. She does not describe it as palpitations. She is not sure if her breathing is better or not. She definitely feels better than when she first presented. The chest tightness is much less. The patient states it is hard for her to tell when she is having asthma problems or not. She did have a peak flow meter at home. She does not know if she still has it. Today, she is noticing some heartburn. This was a new complaint. Perhaps it is related to being on some steroids. OBJECTIVE: GENERAL: The patient looked comfortable. Temperature is 36.4. ENT: Unremarkable. VITAL SIGNS: Heart rate was elevated at 108 per minute at the time of my exam. Blood pressure this morning 123/77. LUNGS: Lung mcclure were clear. They were well heard. I heard no wheezing. Oxygen saturation is 95% on room air. Her respiratory rate was 18 breaths per minute and not labored. EXTREMITIES: Showed no cyanosis, clubbing or edema. LABORATORY DATA: Electrolytes today show sodium 140, potassium 3.8, chloride 108, and bicarb 23. BUN is 20 with a creatinine of 0.84. Blood sugar is 100. White count was elevated at 21.18. Hemoglobin is 13.2. Platelets are 233,000. Initial white count was 16.08. It is unknown if these are elevated due to steroids. Review of her labs done from [facility] from 08/01/2017 showed a white count at that time was 10.18. It was noted that she had a negative CT angio of the chest during that stay. IMPRESSIONS: 1. Asthma with exacerbation. 2. Gastroesophageal reflux disease. 3. Tachycardia. COMMENTS AND RECOMMENDATIONS: The patient seems to be well, although she still does not feel well. I reviewed her prior office records. She did have a normal pulmonary function test earlier this year. A diagnosis of asthma she states was made about 10 years ago. I do believe we should check peak flows. She is already on pantoprazole and thus, it is somewhat surprising that she is having the heartburn. In light of the heart rate elevation, we will decrease to levalbuterol to the 0.63 dose. Her heart rate will need to be followed somewhat. If she stays stable, I would expect tomorrow she could be discharged. She had indicated that she had Breo Ellipta in the past that seemed to work well. She is getting Advair, which was substituted through the hospital formulary. She does not know if her insurance covers either one of these medicines, although she states they usually cover. After discharge, she should be given a followup with Leroy Bernal in a week or so. TON
[2017-08-09] MEDS: LEVALBUTEROL 0.63MG/3 ML NEB INH SCH ×2 (14:05→18:49)
--- NOTE | 2017-08-09 16:15 | Family Medicine Progress Note ---
Progress Note Date of Service Aug 09, 2017. Subjective Pt evaluation today including: conversation w/ patient, physical exam, chart review, lab review, review of studies, review of inpatient medication list Pain: denies PO Intake: adequate Voiding: no voiding problems No acute events. Patient feels overall improvement, however she is concerned about labored breathing that has no resolved. She reports productive cough. She denies Chest tightness, wheezing. Additional Comments: Constitutional: No fever, No chills, No weakness Respiratory: + shortness of breath , No cough Cardiovascular: No chest pain, No palpitations Abdomen: No pain, No nausea, No vomiting Musculoskeletal: No calf pain Skin: No rash, No itch Medications Current Inpatient Medications Medications (Trade) Dose Ordered Sig/Gwen Route Start Time Stop Time Status Last Admin Dose Admin Enoxaparin Sodium (Lovenox Inj) 40 mg DAILY@2000 SQ 08/07/17 20:00 09/06/17 19:59 08/08/17 20:17 40 MG Acetaminophen (Tylenol Tab) 650 mg Q4H PRN PO 08/07/17 16:30 09/06/17 16:29 Al Hydrox/Mg Hydrox/Simethicone (Maalox Max Susp) 15 ml Q4H PRN PO 08/07/17 16:30 09/06/17 16:29 Magnesium Hydroxide (Milk Of Magnesia Susp) 30 ml Q6H PRN PO 08/07/17 16:30 09/06/17 16:29 08/09/17 08:55 30 ML Polyethylene (Miralax Powder Packet) 17 gm DAILY PRN PO 08/07/17 16:30 09/06/17 16:29 Ondansetron HCl (Zofran Inj) 4 mg Q6H PRN IV 08/07/17 16:30 09/06/17 16:29 Guaifenesin (Mucinex Contr Rel Tab) 600 mg Q12 PO 08/07/17 21:00 09/06/17 20:59 08/09/17 07:41 600 MG Prednisone (PredniSONE TAB) 40 mg QAM PO 08/08/17 08:00 09/07/17 08:59 08/09/17 07:41 40 MG Miscellaneous (Iv Fluids Completed) 1 ea PRN PRN N/A 08/07/17 19:15 08/07/18 19:14 Sodium Chloride ([place] Nasal [place]) 1 sprays PRN PRN NA 08/07/17 20:45 09/06/17 20:44 Salmeterol Xinafoate/ Fluticasone (Advair Diskus 250/50 Inh) 1 puff BID INH 08/08/17 20:00 09/07/17 19:59 08/09/17 07:41 1 PUFF Montelukast Sodium (Singulair Tab) 10 mg HS PO 08/08/17 22:00 09/07/17 21:59 08/08/17 20:25 10 MG Levalbuterol (Xopenex 0.63 Mg/ 3 Ml Neb) 0.63 mg Q6R INH 08/09/17 15:00 09/06/17 20:59 08/09/17 14:05 0.63 MG Ranitidine HCl (zANTac TAB) 150 mg QAM PO 08/10/17 08:00 09/09/17 07:59 Objective Vital Signs Date Time Temp Pulse Resp B/P (MAP) Pulse Ox O2 Delivery O2 Flow Rate FiO2 08/09/17 14:43 36.7 95 18 142/80 (100) 96 Room Air 111/74 (86) 08/09/17 14:07 88 16 98 Room Air 08/09/17 08:15 Room Air 08/09/17 07:30 36.4 73 18 123/77 (92) 95 Room Air 08/09/17 07:19 90 16 98 Room Air 08/09/17 02:22 102 16 98 Room Air 08/09/17 00:05 94 Room Air 08/08/17 23:05 36.6 90 18 114/74 (87) 94 Room Air 08/08/17 19:02 102 16 98 Room Air Physical Exam Notes: GENERAL: alert, well appearing, well nourished, no distress, non-toxic EYE EXAM: normal conjunctiva, PERRL and EOM's grossly intact NECK: supple, no nuchal rigidity, no adenopathy, non-tender LUNGS: Clear to auscultation. Breath sounds dec'd HEART: no murmurs, S1 normal and S2 normal ABDOMEN: abdomen soft, non-tender, normo-active bowel sounds, no masses, no rebound or guarding. LOWER EXTREMITIES: No pitting edema. NEURO EXAM: Normal sensorium, cranial nerves II-XII grossly intact, normal speech Laboratory Results Results Past 24 Hours Test 08/09/17 06:08 Range/Units White Blood Count 21.18 4.8-10.8 K/uL Red Blood Count 4.53 4.2-5.4 M/uL Hemoglobin 13.2 12.0-16.0 g/dL Hematocrit 38.8 37-47 % Mean Corpuscular Volume 85.7 80-100 fL Mean Corpuscular Hemoglobin 29.1 25-34 pg Mean Corpuscular Hemoglobin Concent 34.0 32-36 g/dl RDW Standard Deviation 43.3 36.4-46.3 fL RDW Coefficient of Variation 13.8 11.5-14.5 % Platelet Count 233 130-400 K/uL Mean Platelet Volume 10.6 7.4-10.4 fL Sodium Level 140 136-145 mmol/L Potassium Level 3.8 3.5-5.1 mmol/L Chloride Level 108 98-107 mmol/L Carbon Dioxide Level 23 21-32 mmol/L Anion Gap 9.0 3-11 mmol/L Blood Urea Nitrogen 20 7-18 mg/dl Creatinine 0.84 0.60-1.20 mg/dl Est Creatinine Clear Calc Drug Dose 86.7 ml/min Estimated GFR () 95.9 Estimated GFR (Non- 82.8 BUN/Creatinine Ratio 23.4 10-20 Random Glucose 100 70-99 mg/dl Calcium Level 8.7 8.5-10.1 mg/dl Assessment and Plan 47 yo F w/ h/o Asthma with multiple recent ED visits for Asthma exacerbation currently on Albuterol INH only at home presenting with SOB cough, secondary to Acute Asthma Exacerbation SOB, Cough * secondary to Asthma exacerbation * improved bu residual labored breathing, maintaining good O2 saturation Acute Asthma exacerbation * likely exacerbated in setting of URI vs. Bronchitis * previously only on Albuterol INH at home except for a sample of Breo she finished months ago * Continue Xopenex * Appreciate Pulmonology input, * Continue Singulair, Advair, Prednisone taper * will need controller medication ( Breo) on d/c * F/u with Leroy Bernal outpatient Leukocytosis * likely secondary to steroid demargination given prednisone use. * Continue to follow CBC GERD * reports reflux symptoms * Start Ranitidine DVT Prophylaxis * Lovenox Disposition: Home FULL code Resident Physician Supervision Note: I interviewed and examined the patient. Discussed with Dr. Busch and agree with findings and plan as documented in the note. Any exceptions or clarifications are listed here: None Documented By: Seven Mcdonnell feeling a little better breathing easier hasn't been up and around much yet vitals noted nad breathing unlabored no pallor or icterus asthma exacerbation - improving. appears to need maintenance asthma treatment. anticipate home later today or tomorrow depending on progress, particularly w exertional sx Discharge planning: home Resident Tracking Resident Involvement: Resident Care Provided Care Provided: Adult Hospital Medicine
[2017-08-09] MEDS: ENOXAPARIN 40 MG/0.4 ML SYR SQ SCH (20:01)
[2017-08-09] MEDS: MONTELUKAST SOD 10 MG TAB PO SCH (20:01)
--- NOTE | 2017-08-09 21:38 | Discharge Instructions ---
Discharge Instructions Date of Service Aug 09, 2017. Admission Reason for Admission: Asthma Exacerbation Discharge Discharge Diagnosis / Problem: Asthma exacerbation Discharge Goals Goal(s): Improve disease control Activity Recommendations Activity Limitations: resume your previous activity Exercise/Sports Limitations: gradually increase as tolerated . Instructions / Follow-Up Instructions / Follow-Up You were admitted to the hospital for the evaluation and treatment of Asthma. This is a reactive airway disease, meaning that your airways are tight because of some sore of insulting agent. These agents can include a virus or bacteria, a chemical exposure or even allergies You were treated in the hospital with steroids that were both inhaled and oral as well as alternative agents to help with your disease control. Ultimately we would like to continue your regimen for some time outside the hospital to aide in your recovery. We understand that the inhalers can be quite expensive so we were able to contact your insurance company in order to understand which medications would be covered. They are listed below: 1. Advair Diskus- commercial 2. Advair HFA- commercial 3. Breo Ellipta - commercial 4. fluticasone- salmeterol generic You will be given the advair that you have used to go home with in the meantime however we will provide you with the script for Breo as this has worked well for you in the past. Start Breo once the Advair is completed please DO NOT use both inhalers simultaneously. You will also be given a script for prednisone taper. The taper will be as follows day 1- 30 mg ( starting tomorrow) day 2- 20 mg day 3- 20 mg day 4- 10 mg day 5- 10 mg Finally, a new script called singulair will also be started. This medication helps with control of asthma symptoms especially when associated with allergies. As discussed by Leroy Bernal, you may benefit from allergy testing which can be discussed during the follow up with him. In summary, 1. Continue Advair given to you from hospital until completed, THEN start Breo, a prescription will be given 2. Prednisone taper as described above 3. A new medication is added called Singulair 4. Please follow up with your PCP ( family doctor) and pulmonology We wish you well Carlos Bergeron Current Hospital Diet Patient's current hospital diet: Regular Diet Discharge Diet Recommended Diet: Regular Diet Pending Studies Studies pending at discharge: no Medical Emergencies . Who to Call and When: Medical Emergencies: If at any time you feel your situation is an emergency, please call 911 immediately. . Non-Emergent Contact Non-Emergency issues call your: Primary Care Provider, [employer] Call Non-Emergent contact if: you have a fever, you have any medication questions . . "Provider Documentation" section prepared by Khadra Bergeron. . VTE Core Measure Inpt VTE Proph given/why not?: Enoxaparin (Lovenox)LEANNA, T.E.Suzette. Roberto, SCD's
[2017-08-10] MEDS: LEVALBUTEROL 0.63MG/3 ML NEB INH SCH ×2 (02:17→06:54)
[2017-08-10 02:19] VITALS: PULSE 98; O2SAT 97
[2017-08-10 06:55] VITALS: PULSE 86; O2SAT 98
[2017-08-10 07:16] VITALS: BP 128/90; PULSE 77; TEMP 36.6; O2SAT 98
[2017-08-10] MEDS: FLUTICASONE/SALMETEROL 250/50 (ADVAIR) 14 PUFF/1 INHALER INH SCH (07:34)
[2017-08-10 07:41] LABS: HEMATOCRIT 41.8 % (37-47); HEMOGLOBIN 13.8 g/dL (12.0-16.0); MEAN CELL VOLUME 87.3 fL (80-100); MEAN CORPUSCULAR HEMOGLOBIN 28.8 pg (25-34); MEAN PLATELET VOLUME 10.5 fL (7.4-10.4); PLATELET COUNT 238 K/uL (130-400); RED CELL DISTRIBUTION WIDTH CV 13.7 % (11.5-14.5); WHITE BLOOD COUNT 12.82 K/uL (4.8-10.8)
[2017-08-10] MEDS ORDERED: RANITIDINE HCL 150 MG TAB PO SCH (08:00)
[2017-08-10 08:08] LABS: CALCIUM 8.8 mg/dl (8.5-10.1); CREATININE 0.94 mg/dl (0.60-1.20); POTASSIUM 3.9 mmol/L (3.5-5.1)
[2017-08-10] MEDS: GUAIFENESIN 600 MG TABCR PO SCH (09:13)
--- NOTE | 2017-08-10 10:19 | PULMONARY PROGRESS NOTE ---
DATE: 08/10/2017 TIME: 10:05 a.m. SUBJECTIVE: The patient is feeling better today. She denies shortness of breath. When she walks in the [place], she is still getting a fluttering feeling. It is not as bad as yesterday. She has minimal cough. She has not had any heartburn today. OBJECTIVE: GENERAL: The patient appears comfortable at rest. VITAL SIGNS: Temperature 36.6. EARS, NOSE, THROAT: Exam is unremarkable. CARDIOVASCULAR: Heart rate was 100 per minute. The rhythm was regular. She had just been walking in the [place] shortly before this exam. Blood pressure 128/90. LUNGS: Lung mcclure were clear bilaterally. No wheezing was heard. Respiratory rate was 18 breaths per minute. Oxygen saturation was 97% taken by myself on room air. Peak flow done by myself was 440. EXTREMITIES: Showed no cyanosis, clubbing or edema. LABORATORY DATA: White count today was 12.82, which was improved from yesterday when it was 21.18. Electrolytes show sodium 137, potassium 3.9, chloride 103, bicarbonate 25. BUN was 22 with a creatinine of 0.94. IMPRESSIONS: 1. Asthma with exacerbation. 2. Gastroesophageal reflux. COMMENTS AND RECOMMENDATIONS: The patient is doing very well. She is wheeze-free and has a good peak flow. I have no objection to discharge from a pulmonary perspective. Her heart rate is still top normal, although she had just been walking in the hallway. Her prednisone can be tapered as an outpatient. She should follow up with Leroy Bernal PA-C, in 1-2 weeks. She should go home with a medication such as Breo Ellipta or Advair. She had been on Breo as an outpatient and apparently has been getting Advair here.
[2017-08-10] MEDS ORDERED: SNG10 PO (10:49)
[2017-08-10] MEDS ORDERED: FLUT1INH INH (10:49)
[2017-08-10] MEDS ORDERED: PRD10 PO (10:49)
[2017-08-10 11:03] VITALS: BP 128/90; PULSE 77; TEMP 36.6; O2SAT 98
--- NOTE | 2017-08-10 12:43 | Discharge Summary ---
Discharge Summary Date of Service Aug 10, 2017. Discharge Summary Admission Date: Aug 07, 2017 at 16:51 Discharge Date: Aug 10, 2017 Discharge Disposition: Home Principal Diagnosis: Asthma exacerbation Problems/Secondary Diagnoses: Anxiety Consultations: Pulmonary - Leroy Bernal Medication Reconciliation New Medications: Fluticasone Furoate-Vilanterol (Breo Ellipta) 1 Inh Inh 1 INHA INH DAILY for 30 Days, #1 EA Montelukast Sod (Montelukast Sodium) 10 Mg Tab 10 MG PO HS for 30 Days, #30 TAB Prednisone (Prednisone) 10 Mg Tab 30 MG PO QAM for 5 Days, #10 TAB 30 mg x1 day 20 mg x 2 days 10 mg x 2 days and stop Continued Medications: Albuterol Hfa (Ventolin Hfa) 200 Puffs/50033 Mcg Aers 2-4 PUFFS INH Q6H Discharge Exam Patient had improved SOB on exertion and states that she feels ready for d/c home minimal sensation of SOB on exertion now - Discussed discharge home and instructions, questions answered, patient reflected understanding and patient agreeable to d/c home Review of Systems: Constitutional: No fever Eyes: No worsening of vision ENT: No hearing loss Respiratory: No cough, No sputum, No wheezing, No shortness of breath, No dyspnea on exertion, No dyspnea at rest Cardiovascular: No chest pain Abdomen: No pain, No nausea, No vomiting, No diarrhea, No constipation Musculoskeletal: No joint pain, No muscle pain Genitourinary - Female: No dysuria, No hematuria Neurologic: No weakness, No numbness/tingling, No balance problems Psychiatric: + anxiety, No depression symptoms Endocrine: No fatigue Hematologic / Lymphatic: No abnormal bleeding/bruising Integumentary: No rash Physical Exam: General Appearance: no apparent distress Eyes: normal inspection ENT: normal ENT inspection Neck: supple Respiratory/Chest: normal breath sounds, no respiratory distress, no accessory muscle use Cardiovascular: regular rate, rhythm, no murmur, normal peripheral pulses Abdomen / GI: normal bowel sounds, non tender, soft Extremities: normal inspection, no calf tenderness, no pedal edema, normal range of motion Neurologic/Psychiatric: alert, normal mood/affect, oriented x 3 Skin: normal color, warm/dry, no rash Lymphatic: no adenopathy Hospital Course 47 yo F w/ h/o Asthma with multiple recent ED visits for Asthma exacerbation presented to the ED with shortness of breath and wheezing. Patient was admitted to the hospital for evaluation and treatment. She was placed on Singulair, a steroid taper and Advair. She was on Breo in outpatient setting but once her first inhaler was completed she never had it refilled. She did have good control with this inhaler. Once her SOB was under control she was d/c home on these medications as well as instructions on the prednisone taper. Acute Asthma exacerbation without hypoxia - most likely URI secondary to virus considering the patient's hoarse voice/ laryngitis - to continue Albuterol INH - Will continue advair until used and then will switch to the Breo ellipta, Rx given to patient - Singulair cont'd - Discussed use of Nasonex for allergic rhinitis as you question allergic component with such frequent exacerbations - Plan for Allergy testing follow up per Pulmonary - Follow up PCP in 1 week and pulm in 1-2 weeks GERD - Ranitidine was given in house - OTC zantac with symptoms discussed as this is most likely from prednisone however if symptoms continued she was to discuss with her PCP DVT Prophylaxis - lovenox given in house FULL CODE Resident Physician Supervision Note: I interviewed and examined the patient. Discussed with Dr. Bergeron and agree with findings and plan as documented in the note. 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 ongoing PCP and pulmonary f/u. Total Time Spent: Less than 30 minutes This includes examination of the patient, discharge planning, medication reconciliation, and communication with other providers. Discharge Instructions Please refer to the electronic Patient Visit Report (Discharge Instructions) for additional information. Additional Copies To Jay Jay Fierro M.D.; Leroy Bernal PA-C
== END 2017-08-10 14:00 | disposition home or self-care (01) ==
LOC: C.EDB 09:07 → C.MS4W 16:51 → ENRESERV 17:36
PROVIDERS: ADMIT Internal Medicine; ATTEND Family Medicine
DX: J45.901 Unspecified asthma with (acute) exacerbation (principal); K21.9 Gastro-esophageal reflux disease without esophagitis; Z88.0 Allergy status to penicillin; Z83.3 Family history of diabetes mellitus; Z82.49 Family history of ischemic heart disease and other diseases of the circulatory system; Z82.3 Family history of stroke

== ENCOUNTER → 2017-12-21 | Outpatient (CLI) | payer OTHER ==
[~2017-12-21] MED LIST: FLUT1INH INH; PRD10 PO; SNG10 PO; VNTHFA/IN INH
--- NOTE | 2017-12-21 09:54 | DIAGNOSTIC IMAGING REPORT ---
CHEST 2 VIEWS ROUTINE CLINICAL HISTORY: 47 years-old Female presenting with COUGH. TECHNIQUE: PA and lateral views of the chest were obtained. COMPARISON: 08/07/2017. FINDINGS: Cardiomediastinal silhouette normal. Lungs and pleural spaces clear. Osseous structures normal. Upper abdomen normal. IMPRESSION: 1. No acute cardiopulmonary disease. Electronically signed by: Kennedy Jennings M.D. 12/21/2017 9:53 AM Dictated Date/Time: 12/21/2017 9:53 AM
== END | disposition home or self-care (01) ==
LOC: C.RAD1850 09:41
PROVIDERS: ATTEND Physician Assistant
DX: R05 Cough (principal)